=== PATIENT | male | born 1990 | race Caucasian/White ===

== ENCOUNTER 2022-03-29 04:53 | Emergency (ER) | payer OTHER ==
[2022-03-29] MEDS ORDERED: Ondansetron 4 MG Tab.DIS PO ONE (05:41)
== END 2022-03-29 06:05 | disposition home or self-care (01) ==
LOC: JP.ED 04:53
DX: U07.1 COVID-19 (principal); Z88.0 Allergy status to penicillin; Z91.041 Radiographic dye allergy status
CPT/HCPCS: 87635; 99284; Q0162; U0002